=== PATIENT | male | born 1965 | race American Indian/Alaskan Native ===

== ENCOUNTER 2021-05-20 00:31 | Emergency (ER) | payer SELFPAY ==
[~2021-05-20 00:31] MED LIST: ATROPINE 0.1% (1 MG/10 ML) CARDIAC SYRINGE ONE; DEXTROSE 50% IN WATER (25GM) 50 ML SYRINGE IV ONE; EPINEPHrine 1 MG/10 ML SYRINGE ONE; SODIUM BICARB 8.4% 50 MEQ/50 ML SYRINGE IV ONE
[2021-05-20] MEDS ORDERED: SODIUM CHLORIDE 0.9% 1000 ML 1,000 ML ONE (06:50)
[2021-05-20 07:55] VITALS: BP 43/25
[2021-05-20] MEDS ORDERED: ALBUTEROL 2.5 MG/3 ML NEBU IH ONE (13:05)
== END 2021-05-20 18:55 | disposition left against medical advice (07) ==
LOC: ED 00:31
DX: K08.89 Other specified disorders of teeth and supporting structures (principal); Z53.21 Procedure and treatment not carried out due to patient leaving prior to being seen by health care provider
CPT/HCPCS: 82805; 82962; 87070; 87205; 94002; 94644; J0171; J0461; J7030

== ENCOUNTER 2021-05-20 07:05 | Inpatient (IN) | payer SELFPAY ==
[2021-05-20] MEDS ORDERED: SODIUM CHLORIDE 0.9% 1000 ML 1,000 ML ONE (07:12)
[2021-05-20] MEDS ORDERED: NORepinephrine/NS 4 MG-250 ML 4 MG/250 ML BAG IV ONE ×3 (07:16→12:09)
[2021-05-20] MEDS ORDERED: MIDAZOLAM 5 MG/5 ML INJ MDV IV NR (08:00)
[2021-05-20] MEDS ORDERED: MIDAZOLAM 5 MG/5 ML INJ MDV IV ONE (08:04)
--- NOTE | 2021-05-20 08:06 | XRay Report ---
XR chest 1V ap INDICATION / CLINICAL INFORMATION: cardiac arrest, post-intubation. COMPARISON: None available. FINDINGS: SUPPORT DEVICES: Endotracheal tube terminates 1.5 cm above the farzana. HEART /PULMONARY VASCULATURE: Cardiac silhouette is accentuated. Pulmonary vasculature is partially o bscured but appears congested. LUNGS / PLEURA: Patchy bilateral pulmonary opacities, left greater than right. No sizable pleural eff usion. No evidence of pneumothorax. ADDITIONAL FINDINGS: No significant additional findings. IMPRESSION: 1. Endotracheal tube terminates 1.5 cm above the farzana. Recommend retraction by approximately 2 cm. 2. Patchy bilateral pulmonary opacities, may reflect pulmonary edema and/or pneumonia. Signer Name: Jose Francisco Coats MD Signed: 05/20/2021 8:01 AM Workstation Name: [id number]
--- NOTE | 2021-05-20 09:02 | Emergency Department Report ---
ED CPR HPI - General Chief Complaint: Cardiac Arrest/CPR Stated Complaint: CARDIAC ARREST Time Seen by Provider: 05/20/21 07:28 Source: RN/MD Mode of arrival: Stretcher Limitations: Other - History of Present Illness Initial Comments: 56-year-old male, found outside of the ED, by ED staff, in cardiac arrest. Patient is pulseless and apneic, with a rhythm of asystole. ACLS initiated. According to triage nurse, patient was brought in by EMS earlier this morning for EtOH intoxication and dental pain at around 1 AM. Patient apparently did not sign in any further, but was hanging around the entrance of the ED waiting room, leaving prior to triage. Patient was last seen around 3 AM sitting on the sidewalk outside of the ED waiting room. He was awake and alert at that time. Patient was apparently just found unresponsive outside, and was emergently wheeled back. Patient is cool to the touch. Patient has prescription bottles of clindamycin and ibuprofen for pain. MD Complaint: found unresponsive -: unknown Place: other Bystander CPR Performed: Yes Initial Findings in the Field: unresponsive, no respirations, no pulse, other rhythm (Asystole) - Related Data Allergies Allergy/AdvReac Type Severity Reaction Status Date / Time Unable to Assess Allergy Unverified 05/20/21 08:09 ED Review of Systems ROS: Stated complaint: CARDIAC ARREST Other details as noted in HPI Comment: Unobtainable due to pts medical conditions ED Physical Exam - General Limitations: Other - Head Head exam: Present: atraumatic, normocephalic - Eye Eye exam: Present: scleral icterus Pupils: Present: other (Fixed and dilated bilaterally) - ENT ENT exam: Present: mucous membranes dry, other (Trismus present, unable to open mouth) - Neck Neck exam: Present: normal inspection - Respiratory Respiratory exam: Present: other (No spontaneous breaths) - Cardiovascular Cardiovascular Exam: Present: other (No palpable pulse) - GI/Abdominal GI/Abdominal exam: Present: soft. Absent: distended - Extremities Exam Extremities exam: Present: normal inspection - Neurological Exam Neurological exam: Present: other (GCS 3) - Skin Skin exam: Present: dry, intact. Absent: warm (skin is cool) ED Course Vital Signs 05/20/21 05/20/21 05/20/21 06:58 07:02 07:05 Temperature 88.6 F L Pulse Rate Respiratory Rate Blood Pressure O2 Sat by Pulse 66 L 63 L Oximetry 05/20/21 05/20/21 05/20/21 07:30 07:46 08:00 Temperature Pulse Rate 37 L 84 Respiratory 8 L 18 19 Rate Blood Pressure 75/53 61/33 83/37 O2 Sat by Pulse Oximetry 05/20/21 05/20/21 05/20/21 08:16 08:30 08:46 Temperature Pulse Rate 62 47 L 47 L Respiratory 20 20 20 Rate Blood Pressure 43/25 O2 Sat by Pulse 45 L Oximetry 05/20/21 05/20/21 05/20/21 09:00 09:15 09:31 Temperature Pulse Rate 66 62 112 H Respiratory 20 21 20 Rate Blood Pressure 43/25 O2 Sat by Pulse Oximetry 05/20/21 05/20/21 05/20/21 09:45 10:01 10:15 Temperature Pulse Rate 62 96 H 117 H Respiratory 22 23 25 H Rate Blood Pressure 98/69 O2 Sat by Pulse Oximetry 05/20/21 05/20/21 05/20/21 10:31 10:45 11:01 Temperature Pulse Rate 65 67 68 Respiratory 13 17 16 Rate Blood Pressure 99/68 132/100 99/68 O2 Sat by Pulse Oximetry 05/20/21 05/20/21 05/20/21 11:15 11:31 12:13 Temperature 96.8 F L Pulse Rate 69 78 73 Respiratory 21 21 16 Rate Blood Pressure 157/89 132/100 132/100 O2 Sat by Pulse Oximetry 05/20/21 05/20/21 05/20/21 12:14 12:15 12:31 Temperature Pulse Rate 72 80 Respiratory 17 16 Rate Blood Pressure 132/100 148/92 O2 Sat by Pulse 100 Oximetry 05/20/21 05/20/21 05/20/21 12:45 13:01 13:15 Temperature Pulse Rate 79 76 75 Respiratory 17 18 17 Rate Blood Pressure 119/92 144/93 100/46 O2 Sat by Pulse Oximetry 05/20/21 05/20/21 05/20/21 13:31 13:45 14:01 Temperature Pulse Rate 75 78 73 Respiratory 21 19 19 Rate Blood Pressure 100/46 100/46 O2 Sat by Pulse Oximetry 05/20/21 05/20/21 05/20/21 14:15 14:31 14:45 Temperature Pulse Rate 77 69 68 Respiratory 18 21 21 Rate Blood Pressure O2 Sat by Pulse Oximetry 05/20/21 05/20/21 05/20/21 15:01 15:15 15:31 Temperature Pulse Rate 82 82 75 Respiratory 18 21 21 Rate Blood Pressure 44/17 O2 Sat by Pulse Oximetry 05/20/21 05/20/21 05/20/21 15:45 16:01 16:15 Temperature Pulse Rate 62 74 65 Respiratory 21 22 22 Rate Blood Pressure 44/17 44/17 44/17 O2 Sat by Pulse Oximetry 05/20/21 05/20/21 05/20/21 16:30 16:45 17:01 Temperature Pulse Rate 72 61 65 Respiratory 20 20 20 Rate Blood Pressure 132/100 44/17 44/17 O2 Sat by Pulse Oximetry 05/20/21 05/20/21 17:15 17:31 Temperature Pulse Rate Respiratory 20 20 Rate Blood Pressure 44/17 O2 Sat by Pulse Oximetry - Reevaluation(s) Reevaluation #1: 05/20/21 11:43 ABG: (results did not cross over into Sign[employer]) pH 6.68 pCO2 35 pO2 87.8 HCO3 4.1 BE -30.9 sO2 85.4% Reevaluation #2: 05/20/21 14:19 Sister currently here in the ED. Ms. Stacy Castano ([phone]). States patient recently had a tooth pulled about a week ago. He was taking antibiotics for this. Sister states she had not heard from patient in approximately 4 days. She does not know of any past medical history, but reports patient drinks alcohol daily. She reports patient definitely had his first dose of the Covid vaccine back in November or December 2020, unsure if she received a second dose. I informed sister of patient's poor prognosis. She consents to dialysis and wants patient to be full code. - Consultations Consultation #1: 05/20/21 12:[address] Hurley, hands assembler information systems security developer. States change bicarb drip to 150 mEq in D5W at 150 cc/h. Wants to dialyze patient emergently. Consultation #2: 05/20/21 12:[address] Bay for critical care and Vas-Cath placement. States he will be coming to the ED. - Central Line Placement Right Femoral Consent Obtained: emergent situation Time Out Performed: Yes Patient Placed on Monitor/Pulse Ox: Yes MD Prep: mask, gown, gloves Central Line Prep: Chlorhexidine scrub Ultrasound Used for Placement: Yes Central Line Lumen Inserted: triple Reason for Insertion: Emergency Venous Access Bloods Obtained for Lab: Yes Central Line Position: good blood return, all ports aspirated, flus, sutured in place with nyl Dressing Applied: Tegaderm Patient Tolerated Procedure: well Complications: none - Intubation Time Out Performed: Yes Laryngoscope: fiberoptic video scope Size: 4 ET Tube Size: 7.5 Tube Secured Depth (cm): 22 Tube Secured Location: teeth Tube Placement Confirmation: visualized tube passing t, no breath sounds over epi, confirmation by capnometr Patient Tolerated Procedure: well Intubation Complications: none ED Medical Decision Making - Lab Data Result diagrams: 05/20/21 09:06 05/20/21 14:29 - EKG Data -: EKG Interpreted by Me EKG shows normal: ST-T waves Rate: normal (rate 63) - EKG Data Interpretation: other (Intraventricular conduction delay; irregular rhythm) - Radiology Data Radiology results: report reviewed, image reviewed - Medical Decision Making Please see nurses notes for code details. ROSC was achieved. Patient had trismus in his jaw. Versed was given. I was able to open patient's mouth enough for intubation. Patient very cool to the touch. Temperature is 87 degrees. Patient was wrapped in warm blankets. Venkatesh hugger applied. Patient was placed on Levophed and dopamine, but remained hypotensive, and unable to register blood pressure at a certain point. Central line was placed and vasopressin was added. Blood pressure is now within normal limits on Levophed and vasopressin, dopamine was removed. Unable to sweet pickled fruit maker a reliable pulse ox, t his may be due to patient's cold extremities. ABG shows PO2 of 87.8. ABG shows pH is 6.68 with bicarb of 4.1. Patient was already given sodium bicarb amps x2 during ACLS. An additional 1 amp of bicarb was given after the ABG resulted. Chest x-ray shows bilateral opacities, edema versus pneumonia. Labs show WBC is 16.5, lactic acid 29. Blood cultures drawn, patient given normal saline at 30 cc/kg. Vancomycin and cefepime given. Chemistry shows BUN and creatinine of 38 and 3.5, potassium 7.6. Patient given insulin, D50, Kayexalate, calcium. On chemistry, bicarb is 8, so sodium bicarbonate drip has been initiated. I spoke with hands assembler who wants to do emergent dialysis. Client Experience Administrator at bedside to place Vas-Cath. Patient also shows evidence of liver failure with total bili of 4.5 and elevations of AST and ALT to 2297 and 563. Patient also has a coagulopathy with INR of 7. CT head shows small bubbles of gas in the tissues of the right facial region. No obvious trauma present. Initial reason for ED apparently included dental pain. Sister reports patient recently had a tooth pulled. Patient is a GCS of 3 with fixed and dilated pupils. He is on no sedation at this time and has not been responsive. CT chest is questionable for Covid pneumonia. CT abdomen pelvis is negative for any acute findings. Patient will be admitted by hospitalist, Dr. Ayala, for further management. Critical Care Time: Yes Critical care time in (mins) excluding proc time.: 75 Critical care attestation.: If time is entered above; I have spent that time in minutes in the direct care of this critically ill patient, excluding procedure time. Critical Care Time: 75 min ED Disposition Clinical Impression: Metabolic acidosis, Cardiac arrest, Acute renal failure, Hyperkalemia, Coagulopathy, Hepatic failure, Hypothermia, Severe sepsis, Suspected COVID-19 virus infection, Pneumonia Disposition: 20 Is pt being admited?: Yes Condition: Poor Time of Disposition: 13:28
[2021-05-20] MEDS ORDERED: CEFEPIME/NS 1 GM/100 ML 1 GM/100 ML BAG IV ONE (09:12)
[2021-05-20] MEDS ORDERED: VASOPRESSIN 20 UNIT in SODIUM CHLORIDE 0.9% 100 ML IV SCH (09:30)
[2021-05-20 09:59] LABS: Alanine Aminotransferase 563 units/L (7-56); Albumin 1.4 g/dL (3.9-5); BUN/Creatinine Ratio 11; Bilirubin,Direct 3.7 mg/dL (0-0.2); Blood Urea Nitrogen 38 mg/dL (9-20); Calcium 6.1 mg/dL (8.4-10.2); Hemolysis Index 13
[2021-05-20] MEDS ORDERED: NORepinephrine/NS 4 MG-250 ML 4 MG/250 ML BAG IV SCH (10:00)
[2021-05-20] MEDS ORDERED: VANCOMYCIN 1,750 MG in SODIUM CHLORIDE 0.9% 500 ML 500 ML IV ONE (10:00)
[2021-05-20 10:04] LABS: Hematocrit 28.8 % (35.5-45.6); Hemoglobin 9.1 gm/dl (11.8-15.2); Mean Corpuscular HGB Conc 32 % (32-34); Mean Corpuscular Volume 104 fl (84-94); Platelet Count 123 K/mm3 (140-440); Red Blood Count 2.76 M/mm3 (3.65-5.03)
[2021-05-20 10:11] LABS: INR 7.35 (0.87-1.13); Partial Thromboplastin Time 63.6 Sec. (24.2-36.6)
[2021-05-20] MEDS ORDERED: SODIUM CHLORIDE 0.9% 1000 ML 3,000 ML ONE (10:13)
[2021-05-20] MEDS ORDERED: INSULIN REGULAR, HUMAN 100 UNITS/1 ML IV ONE (10:20)
[2021-05-20] MEDS ORDERED: DEXTROSE 50% IN WATER (25GM) 50 ML SYRINGE IV ONE (10:20)
[2021-05-20] MEDS ORDERED: CALCIUM CHLORIDE 1,000 MG/10 ML SYRINGE IV ONE (10:21)
[2021-05-20] MEDS ORDERED: SODIUM BICARBONATE 50 MEQ in SODIUM CHLORIDE 0.9% 1000 ML 1,000 ML IV SCH (11:00)
[2021-05-20 11:41] LABS: Total Cells Counted 100
[2021-05-20 11:46] LABS: Toxic Vacuolation 3+
[2021-05-20 11:48] LABS: Target Cells Few
[2021-05-20 11:49] LABS: Giant Platelets Few; Ovalocytes Few; Platelet Estimate Consistent w Auto
[2021-05-20] MEDS ORDERED: SODIUM POLYSTYRENE 15 GM/60 ML ORAL LIQD PO ONE (12:09)
[2021-05-20] MEDS ORDERED: SODIUM BICARB 8.4% 50 MEQ/50 ML SYRINGE IV ONE (12:15)
[2021-05-20] MEDS ORDERED: ALBUTEROL 2.5 MG/3 ML NEBU IH ONE (12:17)
[2021-05-20] MEDS ORDERED: SODIUM CHLORIDE 0.9% 100 ML IV PRN (12:22)
[2021-05-20] MEDS ORDERED: SODIUM BICARBONATE 150 MEQ in DEXTROSE 5% IN WATER 1,000 ML IV SCH (12:23)
[2021-05-20] MEDS ORDERED: SODIUM CHLORIDE 0.9% 500 ML 500 ML IV ONE (12:28)
--- NOTE | 2021-05-20 12:35 | Cat Scan Report ---
CT head/brain wo con INDICATION / CLINICAL INFORMATION: CARDIAC ARREST. TECHNIQUE: Axial CT imaging of brain was obtained without contrast. Coronal and sagittal reformatted imaging obt ained and reviewed. All CT scans at this location are performed using CT dose reduction for ALARA by means of automated exposure control. COMPARISON: None available. FINDINGS: No intracranial hemorrhage, mass, or midline shift. No extra-axial fluid collection or suggestion of acute territorial infarction. No evidence for global ischemia at this time. The ventricular system an d basilar cisterns are unremarkable. Mild cerebral/cerebellar atrophy noted. Mild microvascular angiopathy noted. Review of the paranasal sinuses demonstrate mild mucosal thickening throughout the ethmoid air cells and sphenoid sinus bilaterally. The maxillary antra are clear. Mastoid air cells are clear bilaterall y. No calvarial abnormality. Review of soft tissues demonstrates bubbles of gas within the soft tissues overlying the right zygoma tic arch, within the right facial region. There is focal diffuse inflammatory change present as well more suggestive of diffuse bruising/ecchymoses. Please confirm that there was trauma to the right fac ial region. IMPRESSION: 1. No acute intracranial abnormality. 2. However, there is suggestion of trauma involving the soft tissues of the right facial region. Smal l bubbles of gas are present in the soft tissues of the right facial region, adjacent to the zygomati c arch as well as the appearance of ecchymosis. Please correlate that there was trauma to the right l ateral facial region. 3. Mild mucosal thickening throughout the ethmoid air cells and sphenoid sinuses bilaterally. Signer Name: Anais Moreno MD Signed: 05/20/2021 12:31 PM Workstation Name: [id number]
--- NOTE | 2021-05-20 12:43 | Cat Scan Report ---
CT abdomen pelvis wo con, CT chest wo con INDICATION / CLINICAL INFORMATION: cardiac arrest. TECHNIQUE: Axial CT imaging of chest, abdomen and pelvis was obtained without contrast. Coronal and sagittal ref ormatted imaging obtained and reviewed. All CT scans at this location are performed using CT dose r eduction for ALARA by means of automated exposure control. COMPARISON: None available. FINDINGS: CT chest without contrast does not demonstrate any significant mediastinal abnormality. Thoracic aort a is of normal caliber. Heart size is normal. Trace pericardial effusion. The ET tube tip is just abo ve the farzana. You may wish to pull back 2 cm. Pulmonary opacities are present throughout both lungs with more consolidated areas of parenchyma in b oth lower lobes posteriorly. Many of the pulmonary opacities in the upper and midlung zones are perip heral and the appearance is most suggestive for multifocal viral pneumonia. No pleural effusion or pn eumothorax is noted. CT abdomen without contrast demonstrates grossly normal appearance of the liver, spleen, pancreas, ki dneys, and adrenal glands. Gallbladder is present without acute abnormality. CT pelvis does not demonstrate any mass, free fluid, or focal inflammatory change. Smith catheter is appropriately positioned within the urinary bladder. A right femoral venous catheter is present with the tip projecting in the right common iliac vein. A normal appendix is present. The stomach and proximal small bowel are fluid-filled and mildly dilated. The remainder of the GI tra ct is of normal appearance. Review of osseous structures demonstrate any significant osseous abnormality IMPRESSION: 1. Abnormal chest CT. Findings within both lungs are very suggestive for bilateral multifocal pneumon ia, most likely Covid related. Please correlate with Covid status. 2. Slightly dilated stomach and proximal small bowel probably related more to ileus rather than other significant finding. No other significant finding within the abdomen or pelvis. 3. Tip of ET tube is at the farzana. You may wish to pull back 2 cm. Signer Name: Anais Moreno MD Signed: 05/20/2021 12:38 PM Workstation Name: [id number]
[2021-05-20 12:46] LABS: Amphetamine Screen,Urine PRESUMPTIVE NEGATIVE; Benzodiazepines Screen,Urine PRESUMPTIVE NEGATIVE; Cannabinoid Screen,Urine PRESUMPTIVE NEGATIVE; Cocaine Screen,Urine PRESUMPTIVE NEGATIVE; Methadone Screen,Urine PRESUMPTIVE NEGATIVE; Opiate Screen,Urine PRESUMPTIVE NEGATIVE
[2021-05-20 12:53] LABS: Bacteria,Urine 2+ /HPF (Negative); Bilirubin,Urine SM (Negative); Blood,Urine MOD (Negative); Color,Urine Amber (Yellow); Mucus,Urine 2+ /HPF
[2021-05-20 12:56] LABS: C-Reactive Protein 7.8 mg/dL (0.00-1.30)
--- NOTE | 2021-05-20 13:25 | History and Physical Report ---
History of Present Illness Date of examination: 05/20/21 Date of admission: 05/20/21 Chief complaint: S/p cardiac arrest History of present illness: This is a 56-year-old male with a history of alcohol abuse was found unconscious and unresponsive outside of the ER. CODE BLUE was called, patient was resuscitated according to ACLS protocol, intubated and initiated on pressor support. Patient remains unresponsive. Laboratory studies in the ER showed significantly elevated lactic acidosis, leukocytosis, severe hyperkalemia, and normal LFTs, coagulopathy and elevated creatinine. Emergently Vas-Cath was placed, treated for hyperkalemia, nephrology and critical care was consulted by ER. Patient is being admitted for further evaluation and management. Past medical history: Alcohol abuse, other history is unknown Past surgical history: Unknown Social history: Lives alone, significant for alcohol abuse Family history: Unknown Review of systems: Unobtainable due to altered mental status and patient being unresponsive Medications and Allergies Allergies Allergy/AdvReac Type Severity Reaction Status Date / Time Unable to Assess Allergy Unverified 05/20/21 08:09 Active Meds: Active Medications Vasopressin 20 unit/ Sodium (Chloride) 101 mls @ 9.09 mls/hr IV TITR RICARDO; Protocol Last Admin: 05/20/21 10:00 Dose: 0.03 units/min, 9.09 mls/hr Documented by: Sodium Bicarbonate 150 meq/ (Dextrose) 1,150 mls @ 150 mls/hr IV DIRECT RICARDO Sodium Chloride (Nacl 0.9%) 100 mls @ 999 mls/hr IV J LUIS PRN PRN Reason: Hypotension Norepinephrine (Levophed Drip 4 Mg/Ns 250 Ml) 4 mg in 250 mls @ 7.5 mls/hr IV TITR RICARDO; Protocol Exam - Physical Exam Narrative exam: GENERAL: well-developed -[place] male lying on bed intubated, unconscious without any sedation HEENT: Normocephalic. Atraumatic. + icterus. Patient has dry mucous membranes. Dilated and fixed. NECK: Trachea midline. CHEST/LUNGS: Coarse breath sounds auscultated bilaterally, mechanically ventilated HEART/CARDIOVASCULAR: S1 and S2 positive. ABDOMEN: Abdomen is soft, nontender. BS hypoactive SKIN: There is no rash. Cold NEURO: Unresponsive MUSCULOSKELETAL: No joint effusion or tenderness. EXTRIMITY: No edema, PSYCH: Unresponsive - Constitutional Vitals: Temp Pulse Resp BP Pulse Ox 96.8 F L 76 18 144/93 100 05/20/21 12:13 05/20/21 13:01 05/20/21 13:01 05/20/21 13:01 05/20/21 12:14 HEART Score - HEART Score Troponin: WBC 16.5 K/mm3 (4.5-11.0) H 05/20/21 09:06 RBC 2.76 M/mm3 (3.65-5.03) L 05/20/21 09:06 Hgb 9.1 gm/dl (11.8-15.2) L 05/20/21 09:06 Hct 28.8 % (35.5-45.6) L 05/20/21 09:06 MCV 104 fl (84-94) H 05/20/21 09:06 MCH 33 pg (28-32) H 05/20/21 09:06 MCHC 32 % (32-34) 05/20/21 09:06 RDW 18.0 % (13.2-15.2) H 05/20/21 09:06 Plt Count 123 K/mm3 (140-440) L 05/20/21 09:06 Add Manual Diff Complete 05/20/21 09:06 Total Counted 100 05/20/21 09:06 Lymphocytes % (Manual) 7.0 % (13.4-35.0) L 05/20/21 09:06 Monocytes % (Manual) 2.0 % (0.0-7.3) 05/20/21 09:06 Nucleated RBC % Not Reportable 05/20/21 09:06 Seg Neutrophils # Man 15.0 K/mm3 (1.8-7.7) H 05/20/21 09:06 Band Neutrophils # 0.0 K/mm3 05/20/21 09:06 Lymphocytes # (Manual) 1.2 K/mm3 (1.2-5.4) 05/20/21 09:06 Abs React Lymphs (Man) 0.0 K/mm3 05/20/21 09:06 Monocytes # (Manual) 0.3 K/mm3 (0.0-0.8) 05/20/21 09:06 Eosinophils # (Manual) 0.0 K/mm3 (0.0-0.4) 05/20/21 09:06 Basophils # (Manual) 0.0 K/mm3 (0.0-0.1) 05/20/21 09:06 Metamyelocytes # 0.0 K/mm3 05/20/21 09:06 Myelocytes # 0.0 K/mm3 05/20/21 09:06 Promyelocytes # 0.0 K/mm3 05/20/21 09:06 Blast Cells # 0.0 K/mm3 05/20/21 09:06 WBC Morphology Not Reportable 05/20/21 09:06 WBC Morphology TNR 05/20/21 09:06 Hypersegmented Neuts Not Reportable 05/20/21 09:06 Hyposegmented Neuts Not Reportable 05/20/21 09:06 Hypogranular Neuts Not Reportable 05/20/21 09:06 Smudge Cells Not Reportable 05/20/21 09:06 Toxic Granulation Not Reportable 05/20/21 09:06 Toxic Vacuolation 3+ 05/20/21 09:06 Dohle Bodies Not Reportable 05/20/21 09:06 Pelger-Huet Anomaly Not Reportable 05/20/21 09:06 Carrie Rods Not Reportable 05/20/21 09:06 Platelet Estimate Consistent w auto 05/20/21 09:06 Clumped Platelets Not Reportable 05/20/21 09:06 Plt Clumps, EDTA Not Reportable 05/20/21 09:06 Large Platelets Not Reportable 05/20/21 09:06 Giant Platelets Few 05/20/21 09:06 Platelet Satelliting Not Reportable 05/20/21 09:06 Plt Morphology Comment Not Reportable 05/20/21 09:06 RBC Morphology Not Reportable 05/20/21 09:06 Dimorphic RBCs Not Reportable 05/20/21 09:06 Polychromasia Few 05/20/21 09:06 Hypochromasia Not Reportable 05/20/21 09:06 Poikilocytosis Not Reportable 05/20/21 09:06 Anisocytosis Not Reportable 05/20/21 09:06 Microcytosis Not Reportable 05/20/21 09:06 Macrocytosis Not Reportable 05/20/21 09:06 Spherocytes Not Reportable 05/20/21 09:06 Pappenheimer Bodies Not Reportable 05/20/21 09:06 Sickle Cells Not Reportable 05/20/21 09:06 Target Cells Few 05/20/21 09:06 Tear Drop Cells Not Reportable 05/20/21 09:06 Ovalocytes Few 05/20/21 09:06 Helmet Cells Not Reportable 05/20/21 09:06 Flynn-Arvin Bodies Not Reportable 05/20/21 09:06 [place] Rings Not Reportable 05/20/21 09:06 Michael Cells Not Reportable 05/20/21 09:06 Bite Cells Not Reportable 05/20/21 09:06 Crenated Cell Not Reportable 05/20/21 09:06 Elliptocytes Not Reportable 05/20/21 09:06 Acanthocytes (Spur) Not Reportable 05/20/21 09:06 Rouleaux Not Reportable 05/20/21 09:06 Hemoglobin C Crystals Not Reportable 05/20/21 09:06 Schistocytes Not Reportable 05/20/21 09:06 Malaria parasites Not Reportable 05/20/21 09:06 Vargas Bodies Not Reportable 05/20/21 09:06 Hem Pathologist Commnt No 05/20/21 09:06 PT 62.2 Sec. (12.2-14.9) H 05/20/21 09:06 INR 7.35 (0.87-1.13) H* 05/20/21 09:06 APTT 63.6 Sec. (24.2-36.6) H* 05/20/21 09:06 Sodium 146 mmol/L (137-145) H 05/20/21 09:06 Potassium 7.6 mmol/L (3.6-5.0) H* 05/20/21 09:06 Chloride 101.0 mmol/L (98-107) 05/20/21 09:06 Carbon Dioxide 8 mmol/L (22-30) L* 05/20/21 09:06 Anion Gap 45 mmol/L 05/20/21 09:06 BUN 38 mg/dL (9-20) H 05/20/21 09:06 Creatinine 3.5 mg/dL (0.8-1.3) H 05/20/21 09:06 Estimated GFR 22 ml/min 05/20/21 09:06 BUN/Creatinine Ratio 11 % 05/20/21 09:06 Glucose 189 mg/dL (75-100) H 05/20/21 11:59 Lactic Acid 29.00 mmol/L (0.7-2.0) H* 05/20/21 09:06 Calcium 6.1 mg/dL (8.4-10.2) L 05/20/21 09:06 Total Bilirubin 4.50 mg/dL (0.1-1.2) H 05/20/21 09:06 Direct Bilirubin 3.7 mg/dL (0-0.2) H 05/20/21 09:06 Indirect Bilirubin 0.8 mg/dL 05/20/21 09:06 AST 2297 units/L (5-40) H 05/20/21 09:06 ALT 563 units/L (7-56) H 05/20/21 09:06 Alkaline Phosphatase 219 units/L (35-129) H 05/20/21 09:06 Troponin T < 0.010 ng/mL (0.00-0.029) 05/20/21 09:06 C-Reactive Protein 7.80 mg/dL (0.00-1.30) H 05/20/21 11:59 NT-Pro-B Natriuret Pep 1822 pg/mL (0-900) H 05/20/21 09:06 Total Protein 4.1 g/dL (6.3-8.2) L 05/20/21 09:06 Albumin 1.4 g/dL (3.9-5) L 05/20/21 09:06 Albumin/Globulin Ratio 0.5 % 05/20/21 09:06 Procalcitonin 40.49 ng/mL (<0.15) 05/20/21 11:59 Urine Color [place] (Yellow) 05/20/21 12:07 Urine Turbidity Cloudy (Clear) 05/20/21 12:07 Urine pH 5.0 (5.0-7.0) 05/20/21 12:07 Ur Specific [place] 1.017 (1.003-1.030) 05/20/21 12:07 Urine Protein 100 mg/dl mg/dL (Negative) 05/20/21 12:07 Urine Glucose (UA) Neg mg/dL (Negative) 05/20/21 12:07 Urine Ketones Neg mg/dL (Negative) 05/20/21 12:07 Urine Blood Mod (Negative) 05/20/21 12:07 Urine Nitrite Neg (Negative) 05/20/21 12:07 Urine Bilirubin Sm (Negative) 05/20/21 12:07 Urine Urobilinogen 4.0 mg/dL (<2.0) 05/20/21 12:07 Ur Leukocyte Esterase Tr (Negative) 05/20/21 12:07 Urine WBC (Auto) 24.0 /HPF (0.0-6.0) H 05/20/21 12:07 Urine RBC (Auto) 7.0 /HPF (0.0-6.0) 05/20/21 12:07 U Epithel Cells (Auto) < 1.0 /HPF (0-13.0) 05/20/21 12:07 Urine Bacteria (Auto) 2+ /HPF (Negative) 05/20/21 12:07 Urine Mucus 2+ /HPF 05/20/21 12:07 Salicylates < 0.3 mg/dL (2.8-20.0) L 05/20/21 09:06 Urine Opiates Screen Presumptive negative 05/20/21 12:07 Urine Methadone Screen Presumptive negative 05/20/21 12:07 Acetaminophen 26.9 ug/mL (10.0-30.0) 05/20/21 09:06 Ur Barbiturates Screen Presumptive negative 05/20/21 12:07 Ur Phencyclidine Scrn Presumptive negative 05/20/21 12:07 Ur Amphetamines Screen Presumptive negative 05/20/21 12:07 U Benzodiazepines Scrn Presumptive negative 05/20/21 12:07 Urine Cocaine Screen Presumptive negative 05/20/21 12:07 U Marijuana (THC) Screen Presumptive negative 05/20/21 12:07 Drugs of Abuse Note Disclamer 05/20/21 12:07 Plasma/Serum Alcohol < 0.01 % (0-0.07) 05/20/21 09:06 Results - Labs CBC & Chem 7: 05/20/21 09:06 05/20/21 14:29 Labs: Abnormal lab results 05/20/21 05/20/21 05/20/21 Range/Units 09:06 09:06 09:06 WBC 16.5 H (4.5-11.0) K/mm3 RBC 2.76 L (3.65-5.03) M/mm3 Hgb 9.1 L (11.8-15.2) gm/dl Hct 28.8 L (35.5-45.6) % MCV 104 H (84-94) fl MCH 33 H (28-32) pg RDW 18.0 H (13.2-15.2) % Plt Count 123 L (140-440) K/mm3 Lymphocytes % (Manual) 7.0 L (13.4-35.0) % Seg Neutrophils # Man 15.0 H (1.8-7.7) K/mm3 PT 62.2 H (12.2-14.9) Sec. INR 7.35 H* (0.87-1.13) APTT 63.6 H* (24.2-36.6) Sec. Sodium (137-145) mmol/L Potassium (3.6-5.0) mmol/L Carbon Dioxide (22-30) mmol/L BUN (9-20) mg/dL Creatinine (0.8-1.3) mg/dL Glucose (75-100) mg/dL Lactic Acid 29.00 H* (0.7-2.0) mmol/L Calcium (8.4-10.2) mg/dL Total Bilirubin (0.1-1.2) mg/dL Direct Bilirubin (0-0.2) mg/dL AST (5-40) units/L ALT (7-56) units/L Alkaline Phosphatase (35-129) units/L C-Reactive Protein (0.00-1.30) mg/dL NT-Pro-B Natriuret Pep (0-900) pg/mL Total Protein (6.3-8.2) g/dL Albumin (3.9-5) g/dL Urine WBC (Auto) (0.0-6.0) /HPF Salicylates (2.8-20.0) mg/dL 05/20/21 05/20/21 05/20/21 Range/Units 09:06 09:06 09:06 WBC (4.5-11.0) K/mm3 RBC (3.65-5.03) M/mm3 Hgb (11.8-15.2) gm/dl Hct (35.5-45.6) % MCV (84-94) fl MCH (28-32) pg RDW (13.2-15.2) % Plt Count (140-440) K/mm3 Lymphocytes % (Manual) (13.4-35.0) % Seg Neutrophils # Man (1.8-7.7) K/mm3 PT (12.2-14.9) Sec. INR (0.87-1.13) APTT (24.2-36.6) Sec. Sodium 146 H (137-145) mmol/L Potassium 7.6 H* (3.6-5.0) mmol/L Carbon Dioxide 8 L* (22-30) mmol/L BUN 38 H (9-20) mg/dL Creatinine 3.5 H (0.8-1.3) mg/dL Glucose 194 H (75-100) mg/dL Lactic Acid (0.7-2.0) mmol/L Calcium 6.1 L (8.4-10.2) mg/dL Total Bilirubin 4.50 H (0.1-1.2) mg/dL Direct Bilirubin 3.7 H (0-0.2) mg/dL AST 2297 H (5-40) units/L ALT 563 H (7-56) units/L Alkaline Phosphatase 219 H (35-129) units/L C-Reactive Protein (0.00-1.30) mg/dL NT-Pro-B Natriuret Pep 1822 H (0-900) pg/mL Total Protein 4.1 L (6.3-8.2) g/dL Albumin 1.4 L (3.9-5) g/dL Urine WBC (Auto) (0.0-6.0) /HPF Salicylates < 0.3 L (2.8-20.0) mg/dL 05/20/21 05/20/21 Range/Units 11:59 12:07 WBC (4.5-11.0) K/mm3 RBC (3.65-5.03) M/mm3 Hgb (11.8-15.2) gm/dl Hct (35.5-45.6) % MCV (84-94) fl MCH (28-32) pg RDW (13.2-15.2) % Plt Count (140-440) K/mm3 Lymphocytes % (Manual) (13.4-35.0) % Seg Neutrophils # Man (1.8-7.7) K/mm3 PT (12.2-14.9) Sec. INR (0.87-1.13) APTT (24.2-36.6) Sec. Sodium (137-145) mmol/L Potassium (3.6-5.0) mmol/L Carbon Dioxide (22-30) mmol/L BUN (9-20) mg/dL Creatinine (0.8-1.3) mg/dL Glucose 189 H (75-100) mg/dL Lactic Acid (0.7-2.0) mmol/L Calcium (8.4-10.2) mg/dL Total Bilirubin (0.1-1.2) mg/dL Direct Bilirubin (0-0.2) mg/dL AST (5-40) units/L ALT (7-56) units/L Alkaline Phosphatase (35-129) units/L C-Reactive Protein 7.80 H (0.00-1.30) mg/dL NT-Pro-B Natriuret Pep (0-900) pg/mL Total Protein (6.3-8.2) g/dL Albumin (3.9-5) g/dL Urine WBC (Auto) 24.0 H (0.0-6.0) /HPF Salicylates (2.8-20.0) mg/dL - Imaging and Cardiology Chest x-ray: report reviewed (Bilateral multilobar pneumonia suspicion for Covid) CT scan - abdomen: report reviewed (Possible ilius) CT Scan - head: report reviewed (right Sided facial trauma) Assessment and Plan S/p Cardiac arrest: etiology unknown, richar order 2d echo, cardiac consult Severe sepsis with shock, cont empiric abx, pressor support, jaramillo cx, iv fluid, ID consult Acute Kidney injury likely ATN: IV fluid, follow serial BMP, nephrology consulted for emergent HD Severe metabolic acidosis: initiated on bicarbonate drip, nephrology consulted for emergent HD Refractory hyperkalemia: cont to treat with hyperkalemia protocol, cont bicarbonate drip, emergent HD Acute Liver failure: likely from alcohol abuse, order hepatic pannel Acute hypoxic respiratory failure: intubated, CC consulted, scheduled nebs Coagulopathy, due to hepatic failure, follow INR/PTT Suspected COVID-19 virus infection, ordered COVID test, initiate covid protocol Possible anoxic brain injury with encephalopathy, follow clinically Macrocytic anemia, follow h/h, will order for B12, folate DVT Px, SCD Full code, extremely poor prognosis The high probability of a clinically significant, sudden or life threatening deterioration of the [multiple] system(s) required my full and direct attention, intervention and personal management. The aggregate critical care time was [65] minutes. This time is in addition to time spent performing reported procedures but includes the following: [x] Data Review and interpretation [x] Patient assessment and monitoring of vital signs [x] Documentation [x] Medication orders and management
--- NOTE | 2021-05-20 13:40 | Procedure Note ---
Date of procedure: 05/20/21 Pre-op diagnosis: Unresponsive, metabolic encephalopathy Post-op diagnosis: same Procedure: Right IJ vascath placement emergent. No family found and patient in need of emergent HD. Right IJ identified with ultrasound. Good target. Using seldinger techinque, IJ was cannulated with trialysis catheter. Good blood return and flush from all 3 ports. Sutured in and nursing to secure with dressing. minimal blood loss despite elevated INR. FFP was not available but no time to wait. Anesthesia: none Surgeon: ALEXUS RAMÍREZ Estimated blood loss: minimal Pathology: none Condition: critical Disposition: ICU
[2021-05-20 14:11] LABS: Hepatitis C Virus Antibody Non-Reactive (NonReactive)
[2021-05-20 14:14] LABS: Ictotest,Urine Positive (Negative)
[2021-05-20 14:17] LABS: Hepatitis B Surface Antigen Nonreactive (Negative)
--- NOTE | 2021-05-20 14:19 | XRay Report ---
CHEST 1 VIEW, 1356 hours INDICATION / CLINICAL INFORMATION: Confirm placement. COMPARISON: 05/20/2021, 0755 FINDINGS: SUPPORT DEVICES: ET tube been withdrawn. The tip is now 4.5 cm from the farzana. Right IJ central veno us line is present with tip in the SVC. NG tube has been placed with tip in the mid portion of the st omach. HEART / MEDIASTINUM: No significant abnormality. LUNGS / PLEURA: Bilateral pulmonary opacities are present, most notable in the right lung base consis tent with bilateral pneumonia. Pulmonary opacities in the right lung base are worsening. No pneumotho rax. ADDITIONAL FINDINGS: No significant additional findings. IMPRESSION: 1. Tubes and lines appear to be in satisfactory position. 2. Multifocal bilateral pneumonia. There is worsening consolidation within the right lung base. Signer Name: Anais Moreno MD Signed: 05/20/2021 2:14 PM Workstation Name: [id number]
[2021-05-20 14:57] LABS: Calcium 6.6 mg/dL (8.4-10.2)
--- NOTE | 2021-05-20 15:30 | Consultation ---
History of Present Illness - Reason for Consult Consult date: 05/20/21 acute renal failure - History of Present Illness RFC: ANTHONY, Acidosis, Hyperkalemia HPI: 56 year old M admitted s/p code blue. Pt is currently intubated on Vent. He is on 3 pressors and a fourth is being added on. His SBP is in the 40s. He is 100% FiO2. His K has been high and he has severe acidosis as well. ROS: Unable to obtain PMH: Unknown PSH: unknown SH: Unknown FH: Unknown. Medications and Allergies Allergies Allergy/AdvReac Type Severity Reaction Status Date / Time Unable to Assess Allergy Unverified 05/20/21 08:09 Active Meds: Active Medications Vasopressin 20 unit/ Sodium (Chloride) 101 mls @ 9.09 mls/hr IV TITR RICARDO; Protocol Last Admin: 05/20/21 10:00 Dose: 0.03 units/min, 9.09 mls/hr Documented by: Sodium Bicarbonate 150 meq/ (Dextrose) 1,150 mls @ 150 mls/hr IV DIRECT RICARDO Sodium Chloride (Nacl 0.9%) 100 mls @ 999 mls/hr IV J LUIS PRN PRN Reason: Hypotension Norepinephrine (Levophed Drip 4 Mg/Ns 250 Ml) 4 mg in 250 mls @ 7.5 mls/hr IV TITR RICARDO; Protocol Cefepime HCl (Cefepime/Ns 2 Gm/100 Ml) 2 gm in 100 mls @ 200 mls/hr IV Q12H RICARDO; Protocol Exam - Vital Signs Vital signs: Vital Signs Pulse Ox 66 L 05/20/21 06:58 - Physical Exam Narrative exam: GE:Intubated HEENT:Normocephalic Neck:Supple Chest:Coarse BS BL CVS:RRR Abd:BS+ Ext:No cce Neuro:On Vent Results - Lab Results 05/20/21 09:06 05/20/21 14:29 Most recent lab results Calcium 6.6 mg/dL (8.4-10.2) L 05/20/21 14:29 Assessment and Plan Acute Kidney injury likely ATN: Severe acidosis: Hyperkalemia: S/p Cardiac arrest: Liver failure: Acute hypoxic respiratory failure: -On 3 pressors, 4th being added. SBP in 40s. Not a candidate for dialysis as won't tolerate. -Medical Management for hyperkalemia was ordered before -On bicarb drip -Renally dose all meds -Intubated on Vent -Pt is severely sick with multi-organ failure, Poor prognosis, recommend having discussion with family regarding limits of care Bebeto Quinn MD
[2021-05-20 18:06] VITALS: BP 44/17
--- NOTE | 2021-05-20 18:44 | Event Note ---
Date: 05/20/21 Patient was made DNR by his family members Called by RN that patient is asystole on the monitor Went to examine the patient Patient with fixed dilated pupil, no heartbeat no pulse no corneal reflex Pronounced at 17:27 Called patient's family/sister and updated Cause of : Cardiopulmonary arrest due to severe septic shock, severe met abolic acidosis, multiorgan failure
[2021-05-20] MEDS ORDERED: CEFEPIME/NS 2 GM/100 ML 2 GM/100 ML BAG IV SCH (23:00)
--- NOTE | 2021-05-21 08:36 | Death Summary ---
Summary - Providers Consults: 05/20/21 12:18 Consult to Physician [CONS] Stat Comment: Consulting Provider: DELISA LEIGH Physician Instructions: Reason For Exam: renal failure 05/20/21 12:37 Consult to Physician [CONS] Stat Comment: Consulting Provider: ALEXUS RAMÍREZ Physician Instructions: Reason For Exam: critical care Attending: CARLOS JURADO MD - summary Date of admission: 05/20/21 16:32 Date of : 05/20/21 Reason for admission: cardiac arrest Significant findings: Chief complaint: S/p cardiac arrest History of present illness: This is a 56-year-old male with a history of alcohol abuse was found unconscious and unresponsive. The ER. MANOJ NARAYANAN was called, patient was resuscitated according to ACLS protocol, intubated and initiated on pressor support. Patient remains unresponsive. Laboratory studies in the ER showed significantly elevated lactic acidosis, leukocytosis, severe hyperkalemia, and normal LFTs, coagulopathy and elevated creatinine. Emergently Vas-Cath was placed, treated for hyperkalemia, nephrology and critical care was consulted by ER. Patient is being admitted for further evaluation and management. Past medical history: Alcohol abuse, other history is unknown Past surgical history: Unknown Social history: Lives alone, significant for alcohol abuse Family history: Unknown Review of systems: Unobtainable due to altered mental status and patient being unresponsive S/p Cardiac arrest: etiology unknown, richar order 2d echo, cardiac consult Severe sepsis with shock, cont empiric abx, pressor support, jaramillo cx, iv fluid, ID consult Acute Kidney injury likely ATN: IV fluid, follow serial BMP, nephrology consulted for emergent HD Severe metabolic acidosis: initiated on bicarbonate drip, nephrology consulted for emergent HD Refractory hyperkalemia: cont to treat with hyperkalemia protocol, cont bicarbonate drip, emergent HD Acute Liver failure: likely from alcohol abuse, order hepatic pannel Acute hypoxic respiratory failure: intubated, CC consulted, scheduled nebs Coagulopathy, due to hepatic failure, follow INR/PTT Suspected COVID-19 virus infection, ordered COVID test, initiate covid protocol Possible anoxic brain injury with encephalopathy, follow clinically Macrocytic anemia, follow h/h, will order for B12, folate DVT Px, SCD Full code, extremely poor prognosis Patient was made DNR by his family members Called by RN that patient is asystole on the monitor Went to examine the patient Patient with fixed dilated pupil, no heartbeat no pulse no corneal reflex Pronounced at 17:27 Called patient's family/sister and updated Cause of : Cardiopulmonary arrest due to severe septic shock, severe metabo lic acidosis, multiorgan failure, suspected covid 19 infection. - Final diagnosis (1) Cardiac arrest Note: Final diagnosis: (2) Septic shock Note: Final diagnosis: (3) Metabolic acidosis Note: Final diagnosis: (4) Suspected COVID-19 virus infection Note: Final diagnosis:
--- NOTE | 2021-05-22 09:43 | Electrocardiograph Report ---
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
== END 2021-05-21 18:00 | DRG 871 ==
LOC: ED 07:05 → CC1 16:32
PROVIDERS: ADMIT Internal Medicine; ATTEND Internal Medicine
PROC: 06HY33Z Insertion of Infusion Device into Lower Vein, Percutaneous Approach (ICD-10-PCS; principal; 2021-05-20)
PROC: 02HV33Z Insertion of Infusion Device into Superior Vena Cava, Percutaneous Approach (ICD-10-PCS; 2021-05-20)
PROC: B548ZZA Ultrasonography of Superior Vena Cava, Guidance (ICD-10-PCS; 2021-05-20)
PROC: 0BH17EZ Insertion of Endotracheal Airway into Trachea, Via Natural or Artificial Opening (ICD-10-PCS; 2021-05-20)
DX: A41.9 Sepsis, unspecified organism (principal); R65.21 Severe sepsis with septic shock; N17.0 Acute kidney failure with tubular necrosis; J96.01 Acute respiratory failure with hypoxia; G93.1 Anoxic brain damage, not elsewhere classified; K70.40 Alcoholic hepatic failure without coma; D53.9 Nutritional anemia, unspecified; Z20.822 Contact with and (suspected) exposure to COVID-19; I46.9 Cardiac arrest, cause unspecified; E87.5 Hyperkalemia; Z66 Do not resuscitate
CPT/HCPCS: 36415; 70450; 71045; 71250; 74176; 80048; 80074; 80076; 80307; 80320; 81001; 82140; 82728; 82947; 83615; 83880; 84145; 84484; 85007; 85025; 85379; 85610; 85730; 86140; 86900; 86901; 87040; 87086; 93005; G0378; G0480; J0692; J1815; J2250; J3370; J7030; J7040; J7070